=== PATIENT | female | born 1940 ===

== ENCOUNTER 2017-04-14 16:27 | Emergency (ER) | payer MEDICARE, OTHER ==
[2017-04-14 16:27] VITALS: BMI 34.8
[2017-04-14 17:15] VITALS: TEMP 98.8
--- NOTE | 2017-04-14 17:59 | ED PDOC ---
Arrival/HPI - General Chief Complaint: Dizziness/Lightheaded Time Seen by Provider: 04/14/17 16:53 Historian: Patient - History of Present Illness Narrative History of Present Illness (Text): 04/14/17 17:52 76yo female with PMHx of hypertension, hypothyroid, Diabetes present to ED with complaint of lightheadedness, chills, headache and nausea x 3days. The son states the lightheadedness became worse today. She states she feels lightheaded , without spinning sensation. She did not take any medication. Denies fever, chills, chest pain, visual changes, focal neurological weakness, aphasia, tinnitus, URI symptoms, trauma, sick contact, any other complaint. Past Medical History - Provider Review Nursing Documentation Reviewed: Yes - Infectious Disease Hx of Infectious Diseases: None - Tetanus Immunization Tetanus Immunization: Unknown - Cardiac Hx Hypertension: Yes - Pulmonary Hx Asthma: Yes Hx Chronic Obstructive Pulmonary Disease (COPD): Yes - Neurological Hx Dementia: Yes - Endocrine/Metabolic Hx Diabetes Mellitus Type 2: Yes Hx Hypothyroidism: Yes - Hematological/Oncological Hx Blood Disorders: No - Integumentary Hx Dermatological Disorder: No - Musculoskeletal/Rheumatological Hx Musculoskeletal Disorders: No Hx Falls: No - Gastrointestinal Hx Gastroesophageal Reflux: Yes - Genitourinary/Gynecological Hx Genitourinary Disorders: No - Psychiatric Hx Anxiety: Yes Hx Substance Use: No - Surgical History Hx Appendectomy: Yes Hx Cholecystectomy: Yes Hx Hysterectomy: Yes - Suicidal Assessment Feels Threatened In Home Enviroment: No Family/Social History - Physician Review Nursing Documentation Reviewed: Yes Family/Social History: Unknown Family HX Smoking Status: Never Smoked Hx Alcohol Use: No Hx Substance Use: No Hx Substance Use Treatment: No Allergies/Home Meds Allergies/Adverse Reactions: Allergies azathioprine Allergy (Intermediate, Verified 04/14/17 16:42) SHORTNESS OF BREATH bacitracin Allergy (Intermediate, Verified 04/14/17 16:42) RASH erythromycin base Allergy (Intermediate, Verified 04/14/17 16:42) RASH hydromorphone Allergy (Intermediate, Verified 04/14/17 16:42) WHEEZING mupirocin Allergy (Intermediate, Verified 04/14/17 16:42) RASH Penicillins Allergy (Intermediate, Verified 04/14/17 16:42) RASH shellfish derived Allergy (Intermediate, Verified 04/14/17 16:42) RASH Tape Adverse Reaction (Intermediate, Uncoded 04/14/17 16:42) RASH Home Medications: Home Meds Medication Instructions Recorded Confirmed Albuterol [Ventolin] 200 puff IH 12/22/12 07/13/13 Alprazolam 1 mg PO PRN PRN 12/22/12 04/14/17 Fluticasone Propionate/Salme 1 puff IH BID 12/22/12 04/14/17 [Advair Diskus 500/50] Ipratropium Maxbass 2.5 ml IH Q6 PRN 12/22/12 07/13/13 Levothyroxine Sodium 0.05 mg PO DAILY 12/22/12 04/14/17 [Levothyroxine] Montelukast [Singulair] 10 mg PO DAILY 12/22/12 04/14/17 Ranitidine HCl [Zantac 150] 150 mg PO DAILY 12/22/12 04/14/17 Prednisone 10 mg PO DAILY 12/23/12 04/14/17 Hydrochlorothiazide/Valsarta 1 tab PO DAILY 07/13/13 04/14/17 [Diovan Hct 25 mg-160 mg] Metformin Hydrochloride [Metformin] 500 mg PO BID 07/13/13 04/14/17 Review of Systems - Physician Review All systems were reviewed & negative as marked: Yes - Review of Systems Constitutional: Normal Eyes: Normal ENT: Normal Respiratory: Normal Cardiovascular: Normal Gastrointestinal: Normal Genitourinary Female: Normal Musculoskeletal: Normal Skin: Normal Neurological: Headache, Dizziness. absent: Speech Changes Endocrine: Normal Hemo/Lymphatic: Normal Psychiatric: Normal Physical Exam Vital Signs Reviewed: Yes Vital Signs Temp Pulse Resp BP Pulse Ox 04/14/17 21:04 81 16 124/70 100 04/14/17 18:02 79 18 122/69 98 04/14/17 17:28 98.8 F 84 18 124/73 98 04/14/17 16:46 98.8 F 84 16 124/73 99 Temperature: Afebrile Blood Pressure: Normal Pulse: Regular Respiratory Rate: Normal Appearance: Positive for: Well-Appearing, Non-Toxic, Comfortable Pain Distress: None Mental Status: Positive for: Alert and Oriented X 3 - Systems Exam Head: Present: Atraumatic, Normocephalic Pupils: Present: PERRL Extroacular Muscles: Present: EOMI Conjunctiva: Present: Normal Mouth: Present: Moist Mucous Membranes Neck: Present: Normal Range of Motion Respiratory/Chest: Present: Clear to Auscultation, Good Air Exchange. No: Respiratory Distress, Accessory Muscle Use Cardiovascular: Present: Regular Rate and Rhythm, Normal S1, S2. No: Murmurs Abdomen: Present: Normal Bowel Sounds. No: Tenderness, Distention, Peritoneal Signs Back: Present: Normal Inspection Upper Extremity: Present: Normal Inspection. No: Cyanosis, Edema Lower Extremity: Present: Normal Inspection. No: Edema Neurological: Present: GCS=15, CN II-XII Intact, Speech Normal, Motor Func Grossly Intact, Normal Sensory Function, Normal Cerebellar Funct, Norm Deep Tendon Reflexes, Memory Normal, Normal 2Pt Descrimination, Other (No focal neurological deficit) Skin: Present: Warm, Dry, Normal Color. No: Rashes Psychiatric: Present: Alert, Oriented x 3, Normal Insight, Normal Concentration Medical Decision Making ED Course and Treatment: 04/15/17 00:16 Pt presented for stated history. She was hemodynamically stable in ED, neurologically stable and ambulatory with a steady gait. Her lab was unremarkable and Head CT IMPRESSION: - No acute findings seen within the brain. - Small amount of fluid in the mastoid air cells bilaterally, suspicious for very mild mastoiditis. - See above for remaining finding Result was DW the pt and son. Pt might have labyrinths, causing her dizziness. she was offered observation for further evaluation, but she insist on going home. states her suffers from Dementia and she takes care of him. she was advised to f/u with her PMD. Referred to a Neurologist/ENT. Advised TRT ED for any new or worsening symptoms. - Lab Interpretations Lab Results: 04/14/17 17:15 04/14/17 17:15 Lab Results 04/14/17 17:50: Urine Color Yellow, Urine Appearance Clear, Urine pH 6.0, Ur Specific [place] >= 1.030, Urine Protein Trace H, Urine Glucose (UA) Negative, Urine Ketones Trace H, Urine Blood Negative, Urine Nitrate Negative, Urine Bilirubin Negative, Urine Urobilinogen 0.2, Ur Leukocyte Esterase Negative, Urine RBC Negative, Urine WBC 2 - 5, Ur Epithelial Cells 10 - 12, Urine Bacteria Mod 04/14/17 17:15: Free T4 1.15, TSH 3rd Generation 6.3 H 04/14/17 17:15: Sodium 134, Potassium 4.1, Chloride 99, Carbon Dioxide 24, Anion Gap 15, BUN 34 H, Creatinine 1.3, Est GFR ( Amer) 48, Est GFR (Non- Af Amer) 40, Random Glucose 110, Calcium 9.3, Total Bilirubin 0.6, AST 30, ALT 24, Alkaline Phosphatase 48, Lactate Dehydrogenase 399, Total Creatine Kinase 124, Troponin I < 0.01, Total Protein 7.8, Albumin 4.2, Globulin 3.6, Albumin/ Globulin Ratio 1.2 04/14/17 17:15: PT 11.7, INR 1.08, APTT 26.8 04/14/17 17:15: WBC 7.9, RBC 4.01, Hgb 11.8 L, Hct 35.0 L, MCV 87.3, MCH 29.4, MCHC 33.7, RDW 14.7 H, Plt Count 364, MPV 11.0, Gran % 64.3, Lymph % (Auto) 27.8 , [place] % (Auto) 5.9, Eos % (Auto) 1.6, Baso % (Auto) 0.4, Gran # 5.09, Lymph # 2.2, [place] # 0.5, Eos # 0.1, Baso # 0.03 - RAD Interpretation Radiology Orders: 04/14/17 17:14 HEAD W/O CONTRAST [CT] Stat Disposition/Present on Arrival - Present on Arrival Any Indicators Present on Arrival: No History of DVT/PE: No History of Uncontrolled Diabetes: Yes Urinary Catheter: No History of Decub. Ulcer: No History Surgical Site Infection Following: None - Disposition Have Diagnosis and Disposition been Completed?: Yes Diagnosis: Dizziness, Headache Disposition: HOME/ ROUTINE Disposition Time: 20:45 Patient Plan: Discharge Condition: STABLE Discharge Instructions (ExitCare): Acute Headache (ED), Dizziness (ED) Additional Instructions: Follow up with your Doctor Return to ED for any new or worsening symptoms Referrals: Eliecer Starks MD [Staff Provider] - Follow up with primary Pratik Palmer DO [Doctor Osteopathy] - Follow up with primary
[2017-04-14 18:01] LABS: ADD MANUAL DIFF? NO
[2017-04-14 18:05] LABS: BASO # 0.03 K/mm3 (0.0-2.0); BASO % 0.4 % (0.0-3.0); EOS # 0.1 (0.0-0.7); EOS % 1.6 % (1.5-5.0); GRAN # 5.09 (1.4-6.5); GRAN % 64.3 % (50.0-68.0); LYMPH # 2.2 (1.2-3.4); LYMPH % 27.8 % (22.0-35.0); MEAN CELL VOLUME 87.3 fL (80.0-105.0); MEAN CORPUSCULAR HEMOGLOBIN 29.4 pg (25.0-35.0); MEAN CORPUSCULAR HGB CONC 33.7 g/dl (31.0-37.0); MONO # 0.5 (0.1-0.6); MONO % 5.9 % (1.0-6.0); PLATELET COUNT 364 10^3/uL (120.0-450.0); RED CELL DISTRIBUTION WIDTH 14.7 % (11.5-14.5); WHITE BLOOD COUNT 7.9 10^3/ul (4.5-11.0)
[2017-04-14 18:14] LABS: URINE BILIRUBIN NEGATIVE (NEGATIVE); URINE BLOOD NEGATIVE (NEGATIVE); URINE GLUCOSE (UA) NEGATIVE (NEGATIVE); URINE KETONE TRACE mg/dL (NEGATIVE); URINE LEUKOCYTE ESTERASE NEGATIVE Leu/uL (NEGATIVE); URINE PROTEIN TRACE mg/dL (<30 mg/dL); URINE UROBILINOGEN 0.2 E.U./dL (<1 E.U./dL)
[2017-04-14 18:15] LABS: URINE APPEARANCE CLEAR (CLEAR); URINE COLOR YELLOW (YELLOW)
[2017-04-14 18:16] LABS: ALB/GLOB RATIO 1.2 (1.1-1.8); ALKALINE PHOSPHATASE 48 U/L (38-133); ALT/SGPT 24 U/L (7-56); AST/SGOT 30 U/L (15-39); BILIRUBIN,TOTAL 0.6 mg/dL (0.2-1.3); BLOOD UREA NITROGEN 34 mg/dL (7-21); CALCIUM 9.3 mg/dL (8.4-10.5); CARBON DIOXIDE 24 mmol/L (21-33); CHLORIDE 99 mmol/L (98-107); GFR AFRICAN-AMERICAN 48; GLUCOSE,RANDOM 110 mg/dL (70-110); POTASSIUM 4.1 mmol/L (3.6-5.0); SODIUM 134 mmol/L (132-148); TOTAL PROTEIN 7.8 g/dL (5.8-8.3)
[2017-04-14 18:17] LABS: INR 1.08 (0.93-1.08); PARTIAL THROMBOPLASTIN TIME 26.8 Seconds (23.7-30.8)
[2017-04-14 18:31] LABS: URINE BACTERIA MOD (NEG); URINE RBC NEGATIVE /hpf (0-2)
[2017-04-14 19:36] LABS: TROPONIN I < 0.01 ng/mL
[2017-04-14 19:52] LABS: FREE T4 1.15 ng/dL (0.78-2.19); THYROID STIMULATING HORMONE 6.3 MIU/ml (0.46-4.68)
--- NOTE | 2017-04-14 20:40 | CT ---
EXAM: CT Head Without Intravenous Contrast CLINICAL HISTORY: 76 years old, female; Pain; Headache TECHNIQUE: Axial computed tomography images of the head/brain without intravenous contrast. This CT exam was performed using one or more of the following dose reduction techniques: automated exposure control, adjustment of the mA and/or kV according to patient size, and/or use of iterative reconstruction technique. EXAM DATE/TIME: 04/14/2017 5:14 PM COMPARISON: No relevant prior studies available. FINDINGS: BRAIN: Diffuse, age-related cortical atrophy and ventriculomegaly. No significant acute abnormality identified. No acute hemorrhage seen within the brain. No acute extra-axial fluid collections visualized. No evidence of significant mass effect within the brain. VENTRICLES: See above. BONES/JOINTS: No acute fractures or other acute bony abnormality noted. SOFT TISSUES: No acute abnormality of the visualized soft tissues is seen. SINUSES: Visualized paranasal sinuses appear clear. MASTOID AIR CELLS: Small amount of fluid in the mastoid air cells bilaterally, suspicious for very mild mastoiditis. No evidence of diffuse mastoiditis or otitis media. IMPRESSION: - No acute findings seen within the brain. - Small amount of fluid in the mastoid air cells bilaterally, suspicious for very mild mastoiditis. - See above for remaining findings.
[2017-04-14 21:06] VITALS: BP 124/70; PULSE 81; RESP 16; O2SAT 100
--- NOTE | 2017-04-15 10:08 | CARD ---
APPROVED REPORT EKG Measurement Heart [id number] <Conclusion> Normal sinus rhythm Cannot rule out Inferior infarct, age undetermined No change
== END 2017-04-14 21:06 | disposition home or self-care (01) ==
LOC: ED 16:27
DX: R42 Dizziness and giddiness (principal); R51 Headache; I10 Essential (primary) hypertension; E11.9 Type 2 diabetes mellitus without complications; E03.9 Hypothyroidism, unspecified

== ENCOUNTER 2017-08-23 13:40 | Emergency (ER) | payer MEDICARE, OTHER ==
[2017-08-23 13:40] VITALS: BMI 34.8
--- NOTE | 2017-08-23 14:31 | ED PDOC ---
Arrival/HPI - General Chief Complaint: Weakness/Neurological Deficit Time Seen by Provider: 08/23/17 14:25 Historian: Patient - History of Present Illness Narrative History of Present Illness (Text): 08/23/17 14:30 77 year old female, whose past medical history includes asthma, anxiety, and lupus disease, is accompanied by daughter and presents to the emergency department complaining of generalized weakness, shortness of breath, and nausea. Patient's daughter reports she has been experiencing much anxiety and appetite changes since of patient's 2 months ago. Since then, patient has lost 45 pounds. Patient recently had blood work done by caseworker protective services and has an appointment on Sunday. PMD: Dr. Seay Symptom Onset: Gradual Past Medical History - Provider Review Nursing Documentation Reviewed: Yes - Travel History Have you recently traveled outside [place] w/in the past 3 mons?: No - Infectious Disease Hx of Infectious Diseases: None - Tetanus Immunization Tetanus Immunization: Unknown - Cardiac Hx Hypertension: Yes - Pulmonary Hx Asthma: Yes Hx Chronic Obstructive Pulmonary Disease (COPD): Yes - Neurological Hx Dementia: Yes - Endocrine/Metabolic Hx Diabetes Mellitus Type 2: Yes Hx Hypothyroidism: Yes - Hematological/Oncological Hx Blood Disorders: No - Integumentary Hx Dermatological Disorder: No - Musculoskeletal/Rheumatological Hx Musculoskeletal Disorders: No Hx Falls: No - Gastrointestinal Hx Gastroesophageal Reflux: Yes - Genitourinary/Gynecological Hx Genitourinary Disorders: No - Psychiatric Hx Anxiety: Yes Hx Substance Use: No - Surgical History Hx Appendectomy: Yes Hx Cholecystectomy: Yes Hx Hysterectomy: Yes - Suicidal Assessment Feels Threatened In Home Enviroment: No Family/Social History - Physician Review Nursing Documentation Reviewed: Yes Family/Social History: No Known Family HX Smoking Status: Never Smoked Hx Alcohol Use: No Hx Substance Use: No Hx Substance Use Treatment: No Allergies/Home Meds Allergies/Adverse Reactions: Allergies azathioprine Allergy (Intermediate, Verified 08/23/17 14:10) SHORTNESS OF BREATH bacitracin Allergy (Intermediate, Verified 08/23/17 14:10) RASH erythromycin base Allergy (Intermediate, Verified 08/23/17 14:10) RASH hydromorphone Allergy (Intermediate, Verified 08/23/17 14:10) WHEEZING mupirocin Allergy (Intermediate, Verified 08/23/17 14:10) RASH Penicillins Allergy (Intermediate, Verified 08/23/17 14:10) RASH shellfish derived Allergy (Intermediate, Verified 08/23/17 14:10) RASH bactroban Allergy (Uncoded 08/23/17 14:10) RASH dilaudid Allergy (Uncoded 08/23/17 14:10) RASH imuran Allergy (Uncoded 08/23/17 14:10) RASH Tape Adverse Reaction (Intermediate, Uncoded 08/23/17 14:10) RASH Review of Systems - Physician Review All systems were reviewed & negative as marked: Yes - Review of Systems Constitutional: Other (generalized weakness) Respiratory: SOB Gastrointestinal: Nausea, Appetite Changes Psychiatric: Anxiety Physical Exam Vital Signs Temp Pulse Resp BP Pulse Ox 08/23/17 16:34 72 20 105/63 99 08/23/17 15:03 97.6 F 84 17 110/63 97 08/23/17 14:10 98.4 F 88 18 122/78 98 Finger Stick Blood Glucose: 110 - Systems Exam Head: Present: Atraumatic, Normocephalic Pupils: Present: PERRL Extroacular Muscles: Present: EOMI Conjunctiva: Present: Normal Mouth: Present: Moist Mucous Membranes Neck: Present: Normal Range of Motion Respiratory/Chest: Present: Clear to Auscultation, Good Air Exchange. No: Respiratory Distress, Accessory Muscle Use Cardiovascular: Present: Regular Rate and Rhythm, Normal S1, S2. No: Murmurs Abdomen: Present: Normal Bowel Sounds. No: Tenderness, Distention, Peritoneal Signs Back: Present: Normal Inspection Upper Extremity: Present: Normal Inspection. No: Cyanosis, Edema Lower Extremity: Present: Erythema, Other (2 superficial wounds, left angle to lateral and left heel, both 3x2 cm, errythemous base. ) Neurological: Present: GCS=15, CN II-XII Intact, Speech Normal Skin: Present: Warm, Normal Color, Diaphoretic. No: Rashes Psychiatric: Present: Alert, Oriented x 3, Normal Insight, Normal Concentration Medical Decision Making ED Course and Treatment: 08/23/17 14:40 Impression: 77 year old female with generalized weakness, shortness of breath, and nausea. Plan: -- EKG -- Chest X-ray -- Labs -- Urinalysis -- Blood Culture -- Urine Culture -- Reassess and disposition Prior Visits: Notes and results from previous visits were reviewed. Patient was last seen in the emergency department on 04/14/2017 for dizziness and nausea. Patient was discharged home. Progress Notes: 08/23/2017 15:19 Chest X-ray IMPRESSION: No acute cardiopulmonary disease. Stable left hemidiaphragm. Dictator: Geovanny Richards MD - Lab Interpretations Narrative Lab Interpretation (Text): 08/23/17 19:27 labs are unremarkable Lab Results: 08/23/17 14:30 08/23/17 15:50 Lab Results 08/23/17 15:50: Urine Color Yellow, Urine Appearance Clear, Urine pH 8.0, Ur Specific [place] 1.010, Urine Protein Negative, Urine Glucose (UA) Negative, Urine Ketones Negative, Urine Blood Negative, Urine Nitrate Negative, Urine Bilirubin Negative, Urine Urobilinogen 0.2, Ur Leukocyte Esterase Negative 08/23/17 15:50: Sodium 138, Potassium 3.5 L, Chloride 102, Carbon Dioxide 24, Anion Gap 16, BUN 19, Creatinine 0.9, Est GFR ( Amer) > 60, Est GFR (Non- Af Amer) > 60, Random Glucose 89, Calcium 9.6, Total Bilirubin 0.5, AST 27, ALT 25, Alkaline Phosphatase 49, Troponin I < 0.01, Total Protein 6.9, Albumin 3.7, Globulin 3.2, Albumin/Globulin Ratio 1.2 08/23/17 14:30: WBC 5.0 D, RBC 4.05, Hgb 11.7 L, Hct 33.9 L, MCV 83.7, MCH 28.9 , MCHC 34.5, RDW 14.4, Plt Count 363, MPV 10.5, Gran % 41.2 L, Lymph % (Auto) 45.1 H, [place] % (Auto) 9.7 H, Eos % (Auto) 3.2, Baso % (Auto) 0.8, Gran # 2.05, Lymph # 2.2, [place] # 0.5, Eos # 0.2, Baso # 0.04 - RAD Interpretation Radiology Orders: 08/23/17 14:26 CHEST PORTABLE [RAD] Stat - EKG Interpretation EKG Interpretation (Text): 08/23/17 14:29 ekg demonstates a NSR at 90 BPM.No acute STTw changes,no ectopyQs noted in 3 sugg of old IWMI Interpreted by ED Physician: Yes Type: 12 lead EKG Comparison: No previous EKG avail. - Medication Orders Current Medication Orders: Discontinued Medications Morphine Sulfate (Morphine) 4 mg IVP STAT STA Stop: 08/23/17 15:31 Last Admin: 08/23/17 16:04 Dose: 4 mg MAR Pain Assessment Document 08/23/17 16:04 ROSETTA (Rec: 08/23/17 16:05 ROSETTA [id number]) Pain Reassessment Is this a pain reassessment? No Sleep Is patient sleeping during reassessment? No Presence of Pain Presence of Pain Yes Pain Scale Used Pain Scale Used Numeric IVP Administration Document 08/23/17 16:04 ROSETTA (Rec: 08/23/17 16:05 ROSETTA [id number]) Charges for Administration # of IVP Administrations 1 - Scribe Statement The provider has reviewed the documentation as recorded by the Librado Rivera Provider Scribe Attestation: All medical record entries made by the Scribe were at my direction and personally dictated by me. I have reviewed the chart and agree that the record accurately reflects my personal performance of the history, physical exam, medical decision making, and the department course for this patient. I have also personally directed, reviewed, and agree with the discharge instructions and disposition. Disposition/Present on Arrival - Present on Arrival Any Indicators Present on Arrival: No History of DVT/PE: No History of Uncontrolled Diabetes: Yes Urinary Catheter: No History of Decub. Ulcer: Yes (left foot since her 20's) History Surgical Site Infection Following: None - Disposition Have Diagnosis and Disposition been Completed?: Yes Diagnosis: Depressed affect Disposition: HOME/ ROUTINE Disposition Time: 19:28 Patient Plan: Discharge Condition: GOOD Discharge Instructions (ExitCare): Weakness (ED) Print Language: ICELANDIC Additional Instructions: follow up out patient psych for depression Prescriptions: oxyCODONE/Acetaminophen [Percocet 5/325 mg Tab] 1 ea PO QID #12 tab [facility] - Follow up with primary Anita Guo MD [Primary Care Provider] - Follow up with primary Forms: [employer] (Polish)
[2017-08-23 15:06] VITALS: TEMP 97.6
--- NOTE | 2017-08-23 15:20 | RAD ---
HISTORY: sob COMPARISON: Portable chest 07/13/2013. FINDINGS: LUNGS: No active pulmonary disease. PLEURA: No significant pleural effusion identified, no pneumothorax apparent. CARDIOVASCULAR: Normal. OSSEOUS STRUCTURES: No significant abnormalities. VISUALIZED UPPER ABDOMEN: Normal. OTHER FINDINGS: Stable elevated left hemidiaphragm. IMPRESSION: No acute cardiopulmonary disease. Stable left hemidiaphragm elevation.
[2017-08-23 15:28] LABS: BASO # 0.04 K/mm3 (0.0-2.0); BASO % 0.8 % (0.0-3.0); EOS # 0.2 (0.0-0.7); EOS % 3.2 % (1.5-5.0); GRAN # 2.05 (1.4-6.5); GRAN % 41.2 % (50.0-68.0); HEMATOCRIT 33.9 % (36.0-48.0); LYMPH # 2.2 (1.2-3.4); LYMPH % 45.1 % (22.0-35.0); MEAN CELL VOLUME 83.7 fl (80.0-105.0); MEAN CORPUSCULAR HEMOGLOBIN 28.9 pg (25.0-35.0); MEAN CORPUSCULAR HGB CONC 34.5 g/dl (31.0-37.0); MEAN PLATELET VOLUME 10.5 fl (7.0-11.0); MONO # 0.5 (0.1-0.6); MONO % 9.7 % (1.0-6.0); RED CELL DISTRIBUTION WIDTH 14.4 % (11.5-14.5)
[2017-08-23] MEDS ORDERED: Morphine 4 mg/ml ISec IVP STA (15:30)
[2017-08-23 16:07] LABS: URINE BILIRUBIN NEGATIVE (NEGATIVE); URINE BLOOD NEGATIVE (NEGATIVE); URINE GLUCOSE (UA) NEGATIVE (NEGATIVE); URINE KETONE NEGATIVE (NEGATIVE); URINE LEUKOCYTE ESTERASE NEGATIVE Leu/uL (NEGATIVE); URINE PROTEIN NEGATIVE mg/dL (<30 mg/dL); URINE UROBILINOGEN 0.2 E.U./dL (<1 E.U./dL)
[2017-08-23 16:09] LABS: URINE APPEARANCE CLEAR (CLEAR); URINE COLOR YELLOW (YELLOW)
[2017-08-23 16:14] LABS: ALB/GLOB RATIO 1.2 (1.1-1.8); ALKALINE PHOSPHATASE 49 U/L (38-126); ALT/SGPT 25 U/L (7-56); AST/SGOT 27 U/L (14-36); BILIRUBIN,TOTAL 0.5 mg/dL (0.2-1.3); BLOOD UREA NITROGEN 19 mg/dL (7-21); CALCIUM 9.6 mg/dL (8.4-10.5); CARBON DIOXIDE 24 mmol/L (21-33); CHLORIDE 102 mmol/L (98-107); GFR AFRICAN-AMERICAN > 60; GLUCOSE,RANDOM 89 mg/dL (70-110); POTASSIUM 3.5 mmol/L (3.6-5.0); SODIUM 138 mmol/L (132-148); TOTAL PROTEIN 6.9 g/dL (5.8-8.3)
[2017-08-23 16:26] LABS: TROPONIN I < 0.01 ng/mL
[2017-08-23 16:35] VITALS: BP 105/63; PULSE 72; RESP 20; O2SAT 99
--- NOTE | 2017-08-23 20:41 | CARD ---
APPROVED REPORT EKG Measurement Heart [id number] <Conclusion> Normal sinus rhythm Possible Inferior infarct, age undetermined Abnormal ECG
== END 2017-08-23 18:03 | disposition home or self-care (01) ==
LOC: ED 13:40
DX: F32.9 Major depressive disorder, single episode, unspecified (principal); I10 Essential (primary) hypertension; E11.9 Type 2 diabetes mellitus without complications; F03.90 Unspecified dementia, unspecified severity, without behavioral disturbance, psychotic disturbance, mood disturbance, and anxiety
CPT/HCPCS: 71010; 80053; 81003; 84484; 85025; 87040; 87086; 93005; 96374; 99285; J2270

== ENCOUNTER 2019-03-10 07:31 | Day surgery (SDC) | payer MEDICARE, OTHER ==
[2019-03-05 14:03] VITALS: BMI 35.2
[2019-03-10] MEDS ORDERED: Propofol 10 mg/ml Inj (20 ML) ONE (08:33)
[2019-03-10] MEDS ORDERED: Midazolam 2 MG/2 ML VIAL ONE (08:34)
[2019-03-10] MEDS ORDERED: Sodium Chloride 0.9% 1,000 ML IV SCH (11:00)
[2019-03-10 13:45] VITALS: BP 131/75; PULSE 71; RESP 16; TEMP 98; O2SAT 99
== END 2019-03-10 12:32 | disposition home or self-care (01) ==
LOC: ENDO 07:31
PROVIDERS: ATTEND Internal Medicine Gastroenterology
DX: K29.70 Gastritis, unspecified, without bleeding (principal); B37.81 Candidal esophagitis; K29.80 Duodenitis without bleeding; K44.9 Diaphragmatic hernia without obstruction or gangrene
CPT/HCPCS: 43239; 88305; 88342; J2001; J2250; J2704; J3010; J7030; J7040

== ENCOUNTER 2019-03-28 13:02 | Outpatient (CLI) | payer MEDICARE, OTHER | END 2019-03-28 13:03 | disposition home or self-care (01) | LOC: RAD 13:02 ==